=== PATIENT | female | born 1960 | race African-American/Black ===

== ENCOUNTER 2021-08-28 20:04 | Emergency (ER) | payer OTHER | END 2021-08-28 22:25 | disposition home or self-care (01) | LOC: CSHERS 20:04 | DX: M54.50 Low back pain, unspecified (principal); V43.04XA Car driver injured in collision with van in nontraffic accident, initial encounter; Y92.481 Parking lot as the place of occurrence of the external cause | CPT/HCPCS: 72131 ==